=== PATIENT | female | born 1975 | race African-American/Black ===

== ENCOUNTER 2020-08-17 17:35 | Emergency (ER) | payer OTHER ==
[2020-08-17 19:21] LABS: BASOPHIL 0.7 % (0-2); EOSINOPHIL 0.7 % (0-5); HCT 34.5 % (37.0-47.0); HGB 10.7 g/dl (12.5-16.0); MCH 26.6 pg (25.0-31.0); MCV 85.8 fL (78.0-100.0); MONOCYTE 8.4 % (0-12); MPV 9.8 fL (6.0-9.5); NEUTROPHIL 76.8 % (41-80); NRBC 0; PLT 260 K/uL (150-400); RBC 4.02 M/uL (4.20-5.40); RDW 18.5 % (11.5-14.0); WBC 7.2 K/uL (4.0-10.5)
[2020-08-17 19:42] LABS: ALBUMIN 3.3 g/dL (3.4-5.0); BILIRUBIN - TOTAL 0.6 mg/dL (0.2-1.0); BUN/CREAT RATIO (CALC) 14.6 RATIO; CREATININE 1.37 mg/dL (0.51-0.95); GLOBULIN (CALCULATION) 4.4 g/dL; POTASSIUM 3.8 mmol/L (3.5-5.1); TOTAL PROTEIN 7.7 g/dL (6.4-8.2)
[2020-08-17 19:54] LABS: INR 1.15 (0.9-1.2)
[2020-09-25] MEDS ORDERED: NORVASC 10MG TA10 MG PO (08:33)
[2020-09-25] MEDS ORDERED: FERRETTS325 MG PO (08:37)
[2020-09-25] MEDS ORDERED: LASIX20 MG PO (08:39)
[2020-09-25] MEDS ORDERED: FLOVENT DISKUS50 MCG (08:39)
[2020-09-25] MEDS ORDERED: MUCUS RELIEF600 MG PO (08:40)
[2020-09-25] MEDS ORDERED: OLOPATADINE HC2.5 ML EYEBOTH (08:42)
[2020-09-25] MEDS ORDERED: PRILOSEC20 MG PO (08:42)
[2020-09-25] MEDS ORDERED: ONDANSETRON HCL4 MG PO (08:43)
[2020-09-25] MEDS ORDERED: POTASSIUM CHLO10 MEQ PO (08:45)
[2020-09-25] MEDS ORDERED: WIXELA 250-501 EACH IN (08:46)
== END 2020-08-17 21:53 | disposition home or self-care (01) ==
LOC: FER 17:35
PROVIDERS: Emergency Medicine; Emergency Medicine Emergency Medical Services
DX: R07.89 Other chest pain (principal); T67.5XXA Heat exhaustion, unspecified, initial encounter; X30.XXXA Exposure to excessive natural heat, initial encounter
CPT/HCPCS: 36415; 71045; 80053; 83880; 84484; 85025; 85610; 85730; 93005; J1885; J7030

== ENCOUNTER → 2020-09-25 | Day surgery (SDC) | payer OTHER ==
[~2020-09-25] VITALS: Ht 180.3 cm; Wt 145.1 kg
[~2020-09-25] MED LIST: FERRETTS325 MG PO; FLOVENT DISKUS50 MCG; LASIX20 MG PO; MUCUS RELIEF600 MG PO; NORVASC 10MG TA10 MG PO; OLOPATADINE HC2.5 ML EYEBOTH; ONDANSETRON HCL4 MG PO; POTASSIUM CHLO10 MEQ PO; PRILOSEC20 MG PO; WIXELA 250-501 EACH IN
[2020-09-25 08:57] LABS: HCG (URINE) SCREEN NEGATIVE (NEGATIVE)
== END | disposition home or self-care (01) ==
LOC: FAS 08:20
PROVIDERS: Anesthesiology
DX: K64.8 Other hemorrhoids (principal); D50.9 Iron deficiency anemia, unspecified; K21.9 Gastro-esophageal reflux disease without esophagitis; M19.90 Unspecified osteoarthritis, unspecified site; J45.909 Unspecified asthma, uncomplicated; I10 Essential (primary) hypertension; G43.909 Migraine, unspecified, not intractable, without status migrainosus; Z87.891 Personal history of nicotine dependence; Z79.899 Other long term (current) drug therapy; Z20.822 Contact with and (suspected) exposure to COVID-19; Z98.51 Tubal ligation status; Z98.890 Other specified postprocedural states
CPT/HCPCS: 84703; J2250; J2704; J7120

== ENCOUNTER 2020-11-09 14:12 | Emergency (ER) | payer OTHER | END 2020-11-09 15:33 | disposition home or self-care (01) | LOC: FER 14:12 | DX: I10 Essential (primary) hypertension (principal); J45.909 Unspecified asthma, uncomplicated | CPT/HCPCS: J1885 ==

== ENCOUNTER 2020-11-20 06:55 | Emergency (ER) | payer OTHER ==
[2020-11-20 08:08] LABS: BASOPHIL 0.1 % (0-2); EOSINOPHIL 0 % (0-5); HCT 38.7 % (37.0-47.0); LYMPHOCYTE 7.1 % (15-48); MCH 28.1 pg (25.0-31.0); MCV 90.6 fL (78.0-100.0); MONOCYTE 4.4 % (0-12); MPV 10.4 fL (6.0-9.5); NEUTROPHIL 87.4 % (41-80); NRBC 0; PLT 166 K/uL (150-400); RBC 4.27 M/uL (4.20-5.40); RDW 15.3 % (11.5-14.0); WBC 9.8 K/uL (4.0-10.5)
[2020-11-20 08:39] LABS: ALBUMIN 2.9 g/dL (3.4-5.0); BILIRUBIN - TOTAL 0.5 mg/dL (0.2-1.0); BUN/CREAT RATIO (CALC) 16.8 RATIO; CREATININE 0.95 mg/dL (0.51-0.95); GLOBULIN (CALCULATION) 4.2 g/dL; POTASSIUM 4.5 mmol/L (3.5-5.1); TOTAL PROTEIN 7.1 g/dL (6.4-8.2)
== END 2020-11-20 11:52 | disposition home or self-care (01) ==
LOC: FER 06:55
PROVIDERS: Emergency Medicine
DX: U07.1 COVID-19 (principal); J12.82 Pneumonia due to coronavirus disease 2019; I10 Essential (primary) hypertension; J45.909 Unspecified asthma, uncomplicated
CPT/HCPCS: 36415; 36600; 71275; 80053; 82803; 83605; 84145; 84484; 85025; 85379; 87040; 93005; 94760; Q9967; U0002

== ENCOUNTER 2021-01-26 19:34 | Emergency (ER) | payer OTHER ==
[2021-01-26] MEDS ORDERED: NAPROXEN500 MG PO (21:44)
[2021-01-26] MEDS ORDERED: PERCOCET 5-3251 EACH PO (21:44)
== END 2021-01-26 21:57 | disposition home or self-care (01) ==
LOC: FER 19:34
DX: S83.92XA Sprain of unspecified site of left knee, initial encounter (principal); S93.402A Sprain of unspecified ligament of left ankle, initial encounter; I10 Essential (primary) hypertension; J45.909 Unspecified asthma, uncomplicated; W01.0XXA Fall on same level from slipping, tripping and stumbling without subsequent striking against object, initial encounter
CPT/HCPCS: 73564; 73610

== ENCOUNTER 2021-02-24 15:03 | Emergency (ER) | payer OTHER ==
[~2021-02-24 15:03] MED LIST changes: +NAPROXEN500 MG PO; +PERCOCET 5-3251 EACH PO
[2021-02-24 18:18] LABS: BASOPHIL 0.6 % (0-2); EOSINOPHIL 1.3 % (0-5); HCT 39.6 % (37.0-47.0); HGB 12.5 g/dl (12.5-16.0); LYMPHOCYTE 22.6 % (15-48); MCH 29.1 pg (25.0-31.0); MCHC 31.6 g/dL (32.0-36.0); MCV 92.1 fL (78.0-100.0); MONOCYTE 9.2 % (0-12); MPV 9.9 fL (6.0-9.5); NEUTROPHIL 66.1 % (41-80); NRBC 0; PLT 231 K/uL (150-400); RDW 13.9 % (11.5-14.0); WBC 4.8 K/uL (4.0-10.5)
[2021-02-24 19:12] LABS: BILIRUBIN NEGATIVE (NEGATIVE); BLOOD 3+ Ery/uL (NEGATIVE); CLARITY CLEAR (CLEAR); COLOR YELLOW (YELLOW); GLUCOSE (U) NORMAL (NORMAL); LEUKOCYTES NEGATIVE Leu/uL (NEGATIVE); NITRITE NEGATIVE (NEGATIVE); PROTEIN NEGATIVE (NEGATIVE); SPECIFIC GRAVITY >=1.030 (1.001-1.030); UROBILINOGEN 0.2 mg/dL (0.2-1.0); pH 5.5 (5.0-9.0)
[2021-02-24 19:15] LABS: INR 1.11 (0.9-1.2); PROTHROMBIN TIME 13.7 SECONDS (11.8-13.4); PTT 37.3 SECONDS (24.4-34.7)
[2021-02-24 19:28] LABS: CALCIUM OXALATE CRYSTALS TRACE
[2021-02-24 19:30] LABS: BACTERIA TRACE
[2021-02-24 20:09] LABS: ALBUMIN 3.3 g/dL (3.4-5.0); BILIRUBIN - TOTAL 0.6 mg/dL (0.2-1.0); BUN/CREAT RATIO (CALC) 13.5 RATIO; C-REACTIVE PROTEIN 0.9 mg/dL (<=0.90); CREATININE 0.89 mg/dL (0.51-0.95); GLOBULIN (CALCULATION) 3.9 g/dL; MAGNESIUM 2.2 mg/dL (1.8-2.4); TOTAL PROTEIN 7.2 g/dL (6.4-8.2)
[2021-02-24] MEDS ORDERED: PERCOCET 5-3251 EACH PO (20:43)
== END 2021-02-24 20:54 | disposition home or self-care (01) ==
LOC: FER 15:03
PROVIDERS: Emergency Medicine
DX: R07.89 Other chest pain (principal); R51.9 Headache, unspecified; M54.2 Cervicalgia; I10 Essential (primary) hypertension; Z20.822 Contact with and (suspected) exposure to COVID-19
CPT/HCPCS: 36415; 70450; 80053; 81001; 82728; 83615; 83735; 83880; 84145; 85025; 85610; 85730; 86140; 93005; J1885; J2405; J7030; U0002

== ENCOUNTER → 2021-04-29 | Day surgery (SDC) | payer OTHER ==
[~2021-04-29] VITALS: Ht 180.3 cm; Wt 149.7 kg
[~2021-04-29] MED LIST changes: +AUGMENTIN 875-1 EACH PO; +COLACE100 MG PO; +COREG3.125 MG PO; +FEOSOL325 MG PO; +IBUPROFEN800 M1 PO; +PEPCID AC20 MG PO; +PRINIVIL20 MG PO; +VENTOLIN HFA IN18 GM INH; +ZOFRAN4 M1 PO
[2021-04-29 07:15] LABS: HCG (URINE) SCREEN NEGATIVE (NEGATIVE)
[2021-04-29 07:44] LABS: HCT 36.1 % (37.0-47.0); HGB 11.5 g/dl (12.5-16.0); MCH 28.5 pg (25.0-31.0); MCHC 31.9 g/dL (32.0-36.0); MCV 89.6 fL (78.0-100.0); MPV 10.1 fL (6.0-9.5); RBC 4.03 M/uL (4.20-5.40); RDW 15.2 % (11.5-14.0); WBC 5.8 K/uL (4.0-10.5)
[2021-04-29 07:50] LABS: ALBUMIN 3.5 g/dL (3.4-5.0); BILIRUBIN - TOTAL 0.7 mg/dL (0.2-1.0); BUN/CREAT RATIO (CALC) 18.3 RATIO; CREATININE 0.93 mg/dL (0.51-0.95); GLOBULIN (CALCULATION) 3.8 g/dL; POTASSIUM 3.6 mmol/L (3.5-5.1); TOTAL PROTEIN 7.3 g/dL (6.4-8.2)
== END | disposition home or self-care (01) ==
LOC: FAS 06:49
PROVIDERS: Obstetrics & Gynecology
DX: D25.1 Intramural leiomyoma of uterus (principal); N92.0 Excessive and frequent menstruation with regular cycle; D64.9 Anemia, unspecified; N94.6 Dysmenorrhea, unspecified; J45.909 Unspecified asthma, uncomplicated; F32.A Depression, unspecified; F41.1 Generalized anxiety disorder; K21.9 Gastro-esophageal reflux disease without esophagitis; I10 Essential (primary) hypertension; G43.909 Migraine, unspecified, not intractable, without status migrainosus; E66.01 Morbid (severe) obesity due to excess calories; Z86.16 Personal history of COVID-19; Z98.51 Tubal ligation status; Z68.42 Body mass index [BMI] 45.0-49.9, adult; Z87.891 Personal history of nicotine dependence; K44.9 Diaphragmatic hernia without obstruction or gangrene; N73.6 Female pelvic peritoneal adhesions (postinfective)
CPT/HCPCS: 36415; 80053; 84703; 86850; 86900; 86901; J0690; J1100; J1170; J1885; J2250; J2405; J2704; J2916; J3010; J7120

== ENCOUNTER 2021-05-03 10:26 | Emergency (ER) | payer OTHER ==
[~2021-05-03 10:26] MED LIST changes: -AUGMENTIN 875-1 EACH PO
[2021-05-03 11:42] LABS: BASOPHIL 0.8 % (0-2); EOSINOPHIL 2.4 % (0-5); HCT 34.5 % (37.0-47.0); HGB 10.8 g/dl (12.5-16.0); LYMPHOCYTE 20.1 % (15-48); MCHC 31.3 g/dL (32.0-36.0); MCV 92.5 fL (78.0-100.0); MONOCYTE 8.1 % (0-12); MPV 9.8 fL (6.0-9.5); NEUTROPHIL 67.9 % (41-80); NRBC 0; PLT 233 K/uL (150-400); RBC 3.73 M/uL (4.20-5.40); RDW 15.4 % (11.5-14.0); WBC 7.1 K/uL (4.0-10.5)
[2021-05-03 12:14] LABS: ALBUMIN 3.1 g/dL (3.4-5.0); BILIRUBIN - TOTAL 0.3 mg/dL (0.2-1.0); CREATININE 0.9 mg/dL (0.51-0.95); GLOBULIN (CALCULATION) 3.7 g/dL; TOTAL PROTEIN 6.8 g/dL (6.4-8.2)
[2021-05-03] MEDS ORDERED: AUGMENTIN 875-1 EACH PO (12:50)
== END 2021-05-03 13:04 | disposition home or self-care (01) ==
LOC: FER 10:26
PROVIDERS: Emergency Medicine
DX: R07.89 Other chest pain (principal); R03.0 Elevated blood-pressure reading, without diagnosis of hypertension; J40 Bronchitis, not specified as acute or chronic
CPT/HCPCS: 36415; 71045; 80053; 84484; 85025; 93005

== ENCOUNTER 2021-05-10 03:28 | Emergency (ER) | payer OTHER ==
[~2021-05-10 03:28] MED LIST changes: +AUGMENTIN 875-1 EACH PO
[2021-05-10 04:01] LABS: BASOPHIL 0.3 % (0-2); EOSINOPHIL 1.2 % (0-5); HGB 10.4 g/dl (12.5-16.0); LYMPHOCYTE 10.9 % (15-48); MCHC 30.6 g/dL (32.0-36.0); MCV 91.6 fL (78.0-100.0); MONOCYTE 8.6 % (0-12); MPV 9.7 fL (6.0-9.5); NEUTROPHIL 78.5 % (41-80); NRBC 0; PLT 255 K/uL (150-400); RBC 3.71 M/uL (4.20-5.40); RDW 15.2 % (11.5-14.0); WBC 10.3 K/uL (4.0-10.5)
[2021-05-10 04:22] LABS: ALBUMIN 3.1 g/dL (3.4-5.0); BILIRUBIN - TOTAL 0.3 mg/dL (0.2-1.0); BUN/CREAT RATIO (CALC) 13.4 RATIO; CREATININE 0.97 mg/dL (0.51-0.95); GLOBULIN (CALCULATION) 4.5 g/dL; MAGNESIUM 2.4 mg/dL (1.8-2.4); POTASSIUM 4.5 mmol/L (3.5-5.1); TOTAL PROTEIN 7.6 g/dL (6.4-8.2)
[2021-05-10 04:23] LABS: LACTIC ACID 2.9 mmol/L (0.4-1.9)
[2021-05-10 05:38] LABS: CORONAVIRUS 2019 SARS-COV-2 NEGATIVE (NEGATIVE); INFLUENZA A NAA NEGATIVE (NEGATIVE)
== END 2021-05-10 08:17 | disposition home or self-care (01) ==
LOC: FER 03:28
PROVIDERS: Emergency Medicine
DX: A41.9 Sepsis, unspecified organism (principal); G89.18 Other acute postprocedural pain; J45.909 Unspecified asthma, uncomplicated; I10 Essential (primary) hypertension; Z20.822 Contact with and (suspected) exposure to COVID-19
CPT/HCPCS: 36415; 71275; 80053; 83605; 83735; 84145; 84484; 85025; 87040; 93005; J1170; J1650; J1885; J2405; J2543; J3370; J7030; J7050; Q9967; U0002

== ENCOUNTER 2021-07-05 20:57 | Emergency (ER) | payer OTHER ==
[2021-07-05 23:04] LABS: BASOPHIL 0.8 % (0-2); EOSINOPHIL 1.6 % (0-5); HCT 39.5 % (37.0-47.0); HGB 12.6 g/dl (12.5-16.0); LYMPHOCYTE 28.7 % (15-48); MCH 27.8 pg (25.0-31.0); MCHC 31.9 g/dL (32.0-36.0); MONOCYTE 12.2 % (0-12); MPV 10.1 fL (6.0-9.5); NEUTROPHIL 56.3 % (41-80); NRBC 0; PLT 209 K/uL (150-400); RBC 4.54 M/uL (4.20-5.40); RDW 15.2 % (11.5-14.0); WBC 5.2 K/uL (4.0-10.5)
[2021-07-05 23:20] LABS: BILIRUBIN - TOTAL 0.4 mg/dL (0.2-1.0); BUN/CREAT RATIO (CALC) 19.8 RATIO; CREATININE 0.86 mg/dL (0.51-0.95); GLOBULIN (CALCULATION) 4.5 g/dL; POTASSIUM 4.3 mmol/L (3.5-5.1); TOTAL PROTEIN 7.5 g/dL (6.4-8.2)
[2021-07-06] MEDS ORDERED: PROTONIX20 MG PO (00:50)
== END 2021-07-06 01:10 | disposition home or self-care (01) ==
LOC: FER 20:57
PROVIDERS: Emergency Medicine
DX: R10.13 Epigastric pain (principal); R10.12 Left upper quadrant pain; R07.89 Other chest pain; I10 Essential (primary) hypertension; J45.909 Unspecified asthma, uncomplicated
CPT/HCPCS: 36415; 80053; 83690; 84484; 85025; 85379; J1885; J2405; J7030